=== PATIENT | male | born 1970 | race Caucasian/White ===

== ENCOUNTER 2017-08-14 20:22 | Emergency (ER) | payer MEDICAID ==
[~2017-08-14] VITALS: Ht 190.5 cm; Wt 102.3 kg
[~2017-08-14 20:22] MED LIST: ALBUTEROL1.25 MG/3 IH; ASPIRIN 32325 MG/TAB PO; ATROVENT I0.2 MG/1 M IH; CARDIZEM120 MG PO; CLINDAMYCIN150 MG PO; COMBIRESP IH; CORDARONE200 MG/TAB PO; COUMADIN 5MG5 MG/TAB PO; KLONOPIN 0.5MG0.5 MG PO; KLOR-CON M2020 MEQ PO; LASIX 20MG TABL20 MG PO; LASIX 40MG TABL40 MG PO; LEVAQUIN 750MG750 M1 PO; LIPITOR 10MG10 MG PO; LOPRESSOR 225 MG/TAB PO; NO HOME MEDICATIONS; NORCO 325 MG-51 TAB PO; PREDNISONE20 MG PO; PROAIR HFA0.09 MG/AC IH; TOPROL XL 25MG25 MG PO; TOPROL XL 50MG50 MG PO; ULTRAM 50MG TAB50 MG PO; ZESTRIL 10MG10 MG PO
[2017-08-14 20:24] VITALS: TEMP 97
[2017-08-14 20:50] LABS: BASO # 0.1 (0.0-0.2); EOS # 0.1 (0.0-0.7); EOS % 2.3 % (0-4.0); GRAN # 3.5 (1.4-6.5); HEMATOCRIT 40.2 % (42.0-52.0); HEMOGLOBIN 13.4 g/dl (13.5-18.0); LYMPH # 1.6 (1.2-3.4); LYMPH % 26.8 % (20.0-51.0); MEAN CELL VOLUME 87 fl (80.0-100.0); MEAN CORPUSCULAR HEMOGLOBIN 29 pg (27.0-31.0); MEAN CORPUSCULAR HGB CONC 33 g/dl (33.0-37.0); MEAN PLATELET VOLUME 10.7 fl (7.4-10.4); MONO # 0.7 (0.1-0.6); MONO % 11.1 % (1.7-9.3); PLATELET COUNT 150 K/mm3 (130-400); RED BLOOD COUNT 4.62 M/mm3 (4.20-5.60)
[2017-08-14 20:56] LABS: ALANINE AMINOTRANSFERASE 40 U/L (21-72); ALBUMIN 3.9 gm/dL (3.5-5.0); ALKALINE PHOSPHATASE 81 U/L (50-136); ANION GAP 9 mmol/L (7-16); BILIRUBIN,TOTAL 0.7 mg/dL (0.0-1.0); BLOOD UREA NITROGEN 17 mg/dL (9-20); CALCIUM 8.9 mg/dL (8.4-10.2); CARBON DIOXIDE 27 mmol/L (22-30); CHLORIDE 103 mmol/L (98-107); CREATININE, serum 1.15 mg/dL (0.66-1.25); GLUCOSE 79 mg/dL (74-106); POTASSIUM 4.5 mmol/L (3.4-5.0); PROTHROMBIN TIME 35.4 SECONDS (9.7-12.8); SODIUM 139 mmol/L (137-145); TOTAL PROTEIN 6.8 gm/dL (6.4-8.2)
[2017-08-14 21:08] LABS: B-TYPE NATRIURETIC PEPTIDE 82 pg/mL (0-125)
[2017-08-14 21:09] LABS: TROPONIN-I < 0.012 ng/mL (0.000-0.034)
[2017-08-14] MEDS ORDERED: LOPRESSOR 550 MG/TAB PO (21:20)
[2017-08-14] MEDS ORDERED: COUMADIN4 MG PO (21:20)
[2017-08-14] MEDS ORDERED: CORDARONE200 MG/TAB PO (21:21)
[2017-08-14] MEDS ORDERED: ZOLOFT 50MG50 MG PO (21:21)
[2017-08-14] MEDS ORDERED: VASOTEC 2.2.5 MG/TAB PO (21:21)
[2017-08-14] MEDS ORDERED: FLOMAX 0.40.4 MG/CAP PO (21:22)
[2017-08-14] MEDS ORDERED: BUSPAR10 MG PO (21:22)
[2017-08-14] MEDS ORDERED: PROAIR HFA0.09 MG/AC IH (21:23)
[2017-08-14] MEDS ORDERED: ZITHROMAX 250M250 MG PO (22:16)
[2017-08-14] MEDS ORDERED: NAPROXEN 3375 MG/TAB PO (22:16)
[2017-08-14 23:20] VITALS: BP 126/89; PULSE 54
== END 2017-08-14 23:24 | disposition home or self-care (01) ==
LOC: COL.ER 20:22
PROVIDERS: Emergency Medicine
DX: J20.9 Acute bronchitis, unspecified (principal); J44.0 Chronic obstructive pulmonary disease with (acute) lower respiratory infection; R07.89 Other chest pain; I50.9 Heart failure, unspecified; I48.91 Unspecified atrial fibrillation; Z79.01 Long term (current) use of anticoagulants; I42.9 Cardiomyopathy, unspecified; Z87.891 Personal history of nicotine dependence
CPT/HCPCS: J1100; J1170; J1885; J2405; J7030

== ENCOUNTER 2018-12-13 15:39 | Inpatient (IN) | payer SELFPAY ==
[~2018-12-13] VITALS: Ht 188 cm; Wt 91.3 kg
[~2018-12-13 15:39] MED LIST changes: +ALDACTONE 25MG25 M1 PO; +BUSPAR10 MG PO; +COREG 6.256.25 MG/TA PO; +COUMADIN4 MG PO; +FLOMAX 0.40.4 MG/CAP PO; +LOPRESSOR 550 MG/TAB PO; +NAPROXEN 3375 MG/TAB PO; +PACERONE400 MG PO; +PRINIVIL10 MG PO; +VASOTEC 2.2.5 MG/TAB PO; +XARELTO20 MG PO; +ZITHROMAX 250M250 MG PO; +ZOLOFT 50MG50 MG PO
[2019-01-07 10:11] LABS: BASO # 0.1 (0.0-0.2); BASO % 0.8 % (0.0-2.0); EOS % 0.3 % (0-4.0); GRAN # 6.2 (1.4-6.5); HEMATOCRIT 42.6 % (42.0-52.0); HEMOGLOBIN 13.7 g/dl (13.5-18.0); LYMPH # 1.5 (1.2-3.4); LYMPH % 17.5 % (20.0-51.0); MEAN CELL VOLUME 82 fl (80.0-100.0); MEAN CORPUSCULAR HEMOGLOBIN 26 pg (27.0-31.0); MEAN CORPUSCULAR HGB CONC 32 g/dl (33.0-37.0); MEAN PLATELET VOLUME 10.4 fl (7.4-10.4); MONO # 0.9 (0.1-0.6); MONO % 9.9 % (1.7-9.3); PLATELET COUNT 245 K/mm3 (130-400); RED BLOOD COUNT 5.18 M/mm3 (4.20-5.60); REDCELL DISTRIBUTION WIDTH-CV 14.6 % (11.5-14.5)
[2019-01-07 10:13] LABS: INR 1.6 (0.8-3.0); PROTHROMBIN TIME 17.8 SECONDS (9.7-12.8)
[2019-01-07 10:30] VITALS: BP 91/60; PULSE 113; TEMP 97.3
[2019-01-07 10:35] LABS: ALBUMIN 3.7 gm/dL (3.5-5.0); BILIRUBIN,TOTAL 1.3 mg/dL (0.0-1.0); CALCIUM 8.7 mg/dL (8.4-10.2); CREATININE, serum 1.3 mg/dL (0.66-1.25); MAGNESIUM 2.2 mg/dL (1.6-2.3); POTASSIUM 4.2 mmol/L (3.4-5.0); TOTAL PROTEIN 6.3 gm/dL (6.4-8.2)
[2019-01-07] MEDS ORDERED: COUMADIN 22.5 MG/TAB PO (10:43)
[2019-01-07 12:35] VITALS: BP 97/72; PULSE 96; TEMP 97
--- NOTE | 2019-01-07 13:28 | NUR ---
Patient admitted to Room 315 this AM for intiation of Sotalol. Patient is understanding that he has A-Fib and has been taking Coumadin on a regular basis. Patient is alert and oriented x 3. Skin w/d. Patient has c/o pain in lower back but states this is chronic for him. He verbalizes that he usually takes Tylenol and changes position for this c/o pain. Lungs essentially clear with resp even/unlabore. HR is strong and irregular. Abdomen is soft with bowel sounds x 4 quads. Appetite is good. Patient given instruction on ordering from menu with ADA diet. Patient verbalizes understanding. PPP. No pedal edema noted. 20 G INT started to right forearm on first attempt. Tele placed on patient. Patient given instruction of call light; meal ordering and plan of care. No other needs at this time. CHF notebook given to patient
[2019-01-07 17:09] VITALS: BP 89/66; PULSE 85; TEMP 97.6
--- NOTE | 2019-01-07 17:37 | NUR ---
Patient continues to be in A-Fib with a rate 80-110. Tele remains on at this time. Tylenol 650 mg given for c/o hip/lower back pain. He reports this is a chronic problem
--- NOTE | 2019-01-07 18:38 | NUR ---
Patient has rested throughout the day. States that since the air has been fixed in room she feels so much better. Patient has recieved pain medication throughout the day per request. Stump has remained unchanged. BISMARK drain has approx 15 cc of red colored fluid.
--- NOTE | 2019-01-07 20:29 | NUR ---
PT SLEEPING A+OX4. NO PAIN. NO SOA. IRREGUALR HEART rhythm. no needs at this time. call light in reach. shift assessment complete/
[2019-01-07 21:10] VITALS: BP 108/84; PULSE 91; TEMP 97.3
[2019-01-08 00:28] VITALS: BP 108/78; PULSE 89; TEMP 97.4
--- NOTE | 2019-01-08 01:57 | NUR ---
pt sleping throughout night. reports no pain. no needs at this time. call light inreach
[2019-01-08 04:00] VITALS: BP 119/71; PULSE 81; TEMP 97.4
--- NOTE | 2019-01-08 05:39 | NUR ---
pt slept throughout night. reports no pain. no soa. pt in AFIB. pulse in 90-110s. pt independent. no needs at this time. call light in reach
--- NOTE | 2019-01-08 06:47 | NUR ---
report given to VIKAS Omer
[2019-01-08 07:35] LABS: BASO # 0.1 (0.0-0.2); BASO % 1.2 % (0.0-2.0); EOS # 0.2 (0.0-0.7); GRAN # 2.6 (1.4-6.5); HEMATOCRIT 44.6 % (42.0-52.0); HEMOGLOBIN 14.6 g/dl (13.5-18.0); INR 1.3 (0.8-3.0); LYMPH # 1.6 (1.2-3.4); LYMPH % 31.4 % (20.0-51.0); MEAN CELL VOLUME 83 fl (80.0-100.0); MEAN CORPUSCULAR HEMOGLOBIN 27 pg (27.0-31.0); MEAN CORPUSCULAR HGB CONC 33 g/dl (33.0-37.0); MEAN PLATELET VOLUME 10.3 fl (7.4-10.4); MONO # 0.6 (0.1-0.6); PLATELET COUNT 195 K/mm3 (130-400); PROTHROMBIN TIME 14.7 SECONDS (9.7-12.8); RED BLOOD COUNT 5.39 M/mm3 (4.20-5.60); REDCELL DISTRIBUTION WIDTH-CV 14.6 % (11.5-14.5)
[2019-01-08 07:47] LABS: CALCIUM 8.6 mg/dL (8.4-10.2); CREATININE, serum 1.14 mg/dL (0.66-1.25); MAGNESIUM 2.1 mg/dL (1.6-2.3); POTASSIUM 4.1 mmol/L (3.4-5.0)
[2019-01-08 07:57] VITALS: BP 112/82; PULSE 106; TEMP 97.6
--- NOTE | 2019-01-08 08:14 | NUR ---
Assessment complete. Pt is AXO x3, states he has pain in his hips rated at a 5/10. Breathing is even and unlabored on room air. Tele on. RW INT flushes easily, remains free of complications, and is CDI. Pt is sitting up in the bed watching TV at this time and he denies further needs. Call light within reach, will continue to monitor.
[2019-01-08 12:12] VITALS: BP 114/89; PULSE 71; TEMP 97.5
[2019-01-08 16:47] VITALS: BP 116/84; PULSE 105; TEMP 97.8
--- NOTE | 2019-01-08 17:00 | NUR ---
STEPHANE met with patient about discharge plans. Patient lives at home with his sister. Patient's PCP is Dr Jose. Patient reports difficulty obtains medications because he does not have insurance. Jay with financial met with patient about financial assistance. STEPHANE will contact Jay to see if patient qualifies for medicaid. Patient reports he does not use any DME or home health services. Patient also reports he does not have a DPOA but would like to complete one. STEPHANE provided form. Patient will read over form with his sister this evening. STEPHANE will follow up about DPOA in the morning. STEPHANE will continue to follow and assist with any discharge needs.
--- NOTE | 2019-01-08 18:13 | NUR ---
Pt has been resting on and off throughout the day. He has had intermittent pain in his hips. Pain medication administered on DEC. Pt's sister is at the bedside and DPOA paperwork was signed and witnesses by VIKAS Slater, and this nurse. Pt is sitting up in the bed watching TV at this time and he denies further needs. Call light within reach.
--- NOTE | 2019-01-08 19:14 | NUR ---
Report given to VIKAS Duff.
[2019-01-08 21:07] VITALS: BP 96/57; PULSE 60; TEMP 97.9
--- NOTE | 2019-01-08 21:18 | NUR ---
PT RESTING IN BED A+OX4.reports paqin in hips 03/08 denies needs for intervention. shift assessment compete. c/o SOA. no needs at this time. call light in reach
[2019-01-09 00:11] VITALS: BP 113/82; PULSE 81; TEMP 98.2
--- NOTE | 2019-01-09 01:57 | NUR ---
pt has been sleeping. no complaints. no needs/ call light in reach
[2019-01-09 04:50] VITALS: BP 126/92; PULSE 77; TEMP 97.9
--- NOTE | 2019-01-09 04:50 | NUR ---
pt had an uneventful night. reports some pain in hips, denied needs for interventions. no needs at this time. call light in reach. Pt in AFIB. NPO for possible cardioversion today.
[2019-01-09 06:58] LABS: BASO % 0.6 % (0.0-2.0); EOS # 0.1 (0.0-0.7); EOS % 2.1 % (0-4.0); GRAN # 4.1 (1.4-6.5); HEMATOCRIT 45.6 % (42.0-52.0); HEMOGLOBIN 14.9 g/dl (13.5-18.0); LYMPH # 1.9 (1.2-3.4); LYMPH % 27.6 % (20.0-51.0); MEAN CELL VOLUME 82 fl (80.0-100.0); MEAN CORPUSCULAR HEMOGLOBIN 27 pg (27.0-31.0); MEAN CORPUSCULAR HGB CONC 33 g/dl (33.0-37.0); MEAN PLATELET VOLUME 10.9 fl (7.4-10.4); MONO # 0.6 (0.1-0.6); MONO % 8.3 % (1.7-9.3); PLATELET COUNT 232 K/mm3 (130-400); RED BLOOD COUNT 5.56 M/mm3 (4.20-5.60); REDCELL DISTRIBUTION WIDTH-CV 14.6 % (11.5-14.5)
[2019-01-09 07:03] LABS: INR 1.7 (0.8-3.0)
--- NOTE | 2019-01-09 07:08 | NUR ---
REPORT GIVEN TO Aly RN. NO NEEDS AT THIS TIME. PT SLEEPING
[2019-01-09 07:11] LABS: CALCIUM 8.7 mg/dL (8.4-10.2); CREATININE, serum 1.13 mg/dL (0.66-1.25); MAGNESIUM 1.9 mg/dL (1.6-2.3); POTASSIUM 4.2 mmol/L (3.4-5.0)
--- NOTE | 2019-01-09 09:00 | NUR ---
Pt lying in bed. Pt tried ordering breafast reminded him he is NPO. Completed morning assessment. pt denies any pain. Call light in reach.
[2019-01-09 09:23] VITALS: BP 120/91; PULSE 51; TEMP 97.8
--- NOTE | 2019-01-09 09:28 | NUR ---
STEPHANE spoke with Jay from [facility] about patient applying for medicaid. Jay reports patient's sister is helping him apply.
--- NOTE | 2019-01-09 09:46 | NUR ---
Pt lying in bed, gave pt his soldalol QTc 509, given per Pamela BEAN from office
[2019-01-09 13:43] VITALS: BP 104/73; PULSE 114; TEMP 97.4
[2019-01-09] MEDS ORDERED: BETAPACE 80MG80 MG PO (15:10)
--- NOTE | 2019-01-09 15:31 | NUR ---
Pt became very upset about not being discharged in a timely manner. Pt removed his own INT. Discharge paper work given, pt verbalized understanding, denies any questions. Pt walked himself out.
== END 2019-01-09 15:20 | disposition home or self-care (01) | DRG 309 ==
LOC: MEDICAL 12-19 15:39
PROVIDERS: Nurse Practitioner; ADMIT Internal Medicine Cardiovascular Disease
DX: I48.0 Paroxysmal atrial fibrillation (principal); I50.22 Chronic systolic (congestive) heart failure; I42.0 Dilated cardiomyopathy; I11.0 Hypertensive heart disease with heart failure; I34.0 Nonrheumatic mitral (valve) insufficiency; Z91.14 Patient's other noncompliance with medication regimen; J44.9 Chronic obstructive pulmonary disease, unspecified; Z79.01 Long term (current) use of anticoagulants; F17.210 Nicotine dependence, cigarettes, uncomplicated

== ENCOUNTER 2019-01-18 08:07 | Inpatient (IN) | payer OTHER ==
[~2019-01-18] VITALS: Ht 188 cm; Wt 97.3 kg
[~2019-01-18 08:07] MED LIST changes: +BETAPACE 80MG80 MG PO; +COUMADIN 22.5 MG/TAB PO
[2019-01-18] MEDS ORDERED: COREG12.5 MG PO (08:36)
[2019-01-18] MEDS ORDERED: PRINIVIL10 MG PO (08:38)
[2019-01-18] MEDS ORDERED: ALDACTONE 25MG25 M1 PO (08:39)
[2019-01-18] MEDS ORDERED: COUMADIN 77.5 MG/TAB PO (08:49)
[2019-01-18 08:50] LABS: HEMATOCRIT 40.5 % (42.0-52.0); HEMOGLOBIN 13.1 g/dl (13.5-18.0); MEAN CELL VOLUME 83 fl (80.0-100.0); MEAN CORPUSCULAR HEMOGLOBIN 27 pg (27.0-31.0); MEAN CORPUSCULAR HGB CONC 32 g/dl (33.0-37.0); MEAN PLATELET VOLUME 10.6 fl (7.4-10.4); PLATELET COUNT 160 K/mm3 (130-400); RED BLOOD COUNT 4.88 M/mm3 (4.20-5.60); REDCELL DISTRIBUTION WIDTH-CV 15.1 % (11.5-14.5)
[2019-01-18 08:51] VITALS: BP 118/99; PULSE 108; TEMP 97.8
[2019-01-18] MEDS ORDERED: COUMADIN 5MG5 MG/TAB PO (08:51)
[2019-01-18 09:05] LABS: CALCIUM 8.6 mg/dL (8.4-10.2); CREATININE, serum 1.17 mg/dL (0.66-1.25); POTASSIUM 3.8 mmol/L (3.4-5.0)
[2019-01-18 09:23] LABS: INR 5.8 (0.8-3.0); PROTHROMBIN TIME 66.2 SECONDS (9.7-12.8)
[2019-01-18 12:40] VITALS: BP 141/89; PULSE 114
--- NOTE | 2019-01-18 12:45 | NUR ---
SEE MEREREBECCA FOR INTRA AND POST SEDATION DOCUMENTATION AND SCORING
--- NOTE | 2019-01-18 14:42 | NUR ---
Pamela RN with Dr Cristina notified me of an CPFT ordered, Talked with nurse taking care of patient and patient still to drowsy to be able to perform CPFT. Will reevaluate on monday, Pamela RN with Dr Cristina Notified.
[2019-01-18 14:50] VITALS: BP 141/89; PULSE 114; TEMP 97.8
--- NOTE | 2019-01-18 16:38 | NUR ---
Report given to Kan BEAN. Transferred to Room 306 by lionel
--- NOTE | 2019-01-18 17:00 | NUR ---
Pt arrived to room 306 via WC.
[2019-01-18 17:58] VITALS: BP 111/79; PULSE 69; TEMP 97.7
[2019-01-18 20:21] VITALS: BP 104/71; PULSE 55; TEMP 97.3
--- NOTE | 2019-01-18 20:30 | NUR ---
Initial shift assessment done- denies pain/SOB , Up ad alanna in room,, Tele on- afib- rate 100,, Did have the 4 hour post amiodarone dose EKG at this time- QTC 463. No requests- states wants to sleep
--- NOTE | 2019-01-18 20:34 | NUR ---
Since arriving to the floor the pt has been resting on and off. he is sitting up in the bed and he denies further needs. Call light within reach. Report given to VIKAS Owens.
[2019-01-18 23:29] VITALS: BP 110/83; PULSE 93; TEMP 97.8
[2019-01-19] VITALS (7 sets, daily range): BP systolic 94–125; BP diastolic 65–89; PULSE 81–110; TEMP 97.4–97.9
--- NOTE | 2019-01-19 06:33 | NUR ---
Quiet night- no requests,,Tele-afib,rate 100-105
[2019-01-19 07:12] LABS: CALCIUM 8.3 mg/dL (8.4-10.2); CREATININE, serum 1.06 mg/dL (0.66-1.25); MAGNESIUM 1.9 mg/dL (1.6-2.3); POTASSIUM 4.2 mmol/L (3.4-5.0)
--- NOTE | 2019-01-19 08:50 | NUR ---
Assessment complete. Pt is AXO X3, states he has pain in his hips rated at a 5/10. Breathing is even and unlabored on room air. Tele on. RA INT flushes easily, remains free of complications, and is CDI. Pt is resting quietly in the bed watching TV at this time and he denies further needs. Call light within reach, will continue to monitor.
[2019-01-19 15:05] LABS: INR 5.1 (0.8-3.0); PROTHROMBIN TIME 58.4 SECONDS (9.7-12.8)
--- NOTE | 2019-01-19 18:09 | NUR ---
Pt has been resting on and off throughout the day. He has had intermittent chronic pain in his hips. Pain medication administered on DEC. Pt is resting quietly in the bed at this time and he denies further needs. Call light within reach, will continue to monitor.
--- NOTE | 2019-01-19 19:24 | NUR ---
Report given to VIKAS Owens.
--- NOTE | 2019-01-19 20:30 | NUR ---
Initial shift assessment done- denies pain,no SOB, states feels like his hands are swollen, Tele on- Afib, rate 100 - family in room, visiting , watching TV. Requesting Pepsi/chocolate milk
[2019-01-20 04:15] VITALS: BP 125/89; PULSE 100; TEMP 97.6
--- NOTE | 2019-01-20 05:20 | NUR ---
States did not sleep much last night- states is coughing , will let Dr. Cristina know during rounds today--offered some hot tea/cocoa,appreciated the hot cocoa- no other requests.
--- NOTE | 2019-01-20 06:49 | NUR ---
Received report, entered room to meet patient and he is noted to be lying on right side sleeping. Respirations are noted to be regular and nonlabored. Call light is within reach.
[2019-01-20 07:30] VITALS: BP 113/92; PULSE 90; TEMP 97.8
--- NOTE | 2019-01-20 07:51 | NUR ---
Patient assessed, asked if he was having any pain and stated yes, 2-3/10. Does have PRN tylenol and was offered. He declined stating this was usual for him and he was used to it. Did state he would like a shower today and will let staff know when he is ready. Reports he slept poorly last night and would like to see if he could get more sleep this morning. I did inform him that he does have a PRN Ambien available to help him sleep and he stated he would accept that tonight. No other needs verbalized. Call light is within reach.
[2019-01-20 08:08] LABS: CALCIUM 8.3 mg/dL (8.4-10.2); CREATININE, serum 1.03 mg/dL (0.66-1.25); MAGNESIUM 1.9 mg/dL (1.6-2.3); POTASSIUM 4.1 mmol/L (3.4-5.0)
[2019-01-20 08:10] LABS: INR 3.7 (0.8-3.0); PROTHROMBIN TIME 42.2 SECONDS (9.7-12.8)
[2019-01-20 12:00] VITALS: BP 117/80; PULSE 95; TEMP 97.5
[2019-01-20 15:26] VITALS: BP 109/78; PULSE 104; TEMP 97.3
--- NOTE | 2019-01-20 16:03 | NUR ---
Call placed to Dr. Cristina regarding INR result today, he does wish for patient to receive the current order of coumadin that is listed on the MAR.
--- NOTE | 2019-01-20 17:13 | NUR ---
Patient has had an uneventful day. Walked around floor with family and girlfriend is currently visiting with him at this time. No needs verbalized, denies pain. Call light is within reach.
[2019-01-20 19:01] VITALS: BP 97/76; PULSE 96; TEMP 97.8
--- NOTE | 2019-01-20 22:17 | NUR ---
Sitting at bedside. Assessment complete. Lungs clear. Heart sounds normal. Bowels active x4. Pulses strong throughout. No edema noted. Denies pain at this time. Denies needs. Call light in reach.
[2019-01-20 23:28] VITALS: BP 116/94; PULSE 79; TEMP 97.3
[2019-01-21] VITALS (12 sets, daily range): BP systolic 99–126; BP diastolic 71–100; PULSE 50–101; TEMP 97–97.9
--- NOTE | 2019-01-21 01:00 | NUR ---
Resting in bed asleep.
--- NOTE | 2019-01-21 04:04 | NUR ---
Resting in bed. Denied needs. Call light in reach.
[2019-01-21 06:40] LABS: INR 3.4 (0.8-3.0); PROTHROMBIN TIME 38.5 SECONDS (9.7-12.8)
[2019-01-21 06:54] LABS: CALCIUM 8.4 mg/dL (8.4-10.2); CREATININE, serum 1.02 mg/dL (0.66-1.25); MAGNESIUM 1.8 mg/dL (1.6-2.3); POTASSIUM 4.1 mmol/L (3.4-5.0)
--- NOTE | 2019-01-21 07:00 | NUR ---
Received report, went to see patient for the morning. Patient was resting in bed with girlfriend. Consent for cardioversion signed. Reminded patient of NPO status. No other needs identified. Call light is withn reach.
--- NOTE | 2019-01-21 07:29 | NUR ---
Report given to VIKAS Henry. Resting in bed this AM. Consent signed for cardioversion. Had uneventful night. Denies needs this AM. Call light in reach.
--- NOTE | 2019-01-21 11:15 | NUR ---
Patient to receiver/laborer for cardioversion at this time.
--- NOTE | 2019-01-21 11:36 | NUR ---
Initial visit; Patient thanked Coke Crusher Operator for looking in on him and offering God's blessings.
--- NOTE | 2019-01-21 11:41 | NUR ---
ALL SEDATION MEDICATIONS GIVEN DURING PROCEDURE WITH VERBAL ORDER FROM MD PERDOMO. SEE MERGE REPORT FOR MEDICATION ADMIN TIMES. SEE MERGE FOR RASS AND MODERATE SEDATION ASSESSMENTS DURING AND POST PROCEDURE.
[2019-01-21] MEDS ORDERED: PACERONE400 MG PO (11:57)
[2019-01-21] MEDS ORDERED: COREG 25MG25 MG/TAB PO (11:58)
[2019-01-21] MEDS ORDERED: COUMADIN 5MG5 MG/TAB PO (11:58)
--- NOTE | 2019-01-21 12:38 | NUR ---
Patient returned from procedure. Is sleepy, does arouse to name and will follow commands. Shook head no when asked if he had pain. Nursing is remaining at bedside.
--- NOTE | 2019-01-21 14:30 | NUR ---
ATTEMPTED TO COOKIE PADDER PATIENT FOR CPFT AND PATIENT FELT HE WAS STILL TO TIRED TO BE ABLE TO PERFOM CPFT. AUGUST BEAN WITH DR PERDOMO NOTIFIED GLORIAT WILL DO CPFT AN OUT PATIENT. NURSE NOTIFIED
--- NOTE | 2019-01-21 14:31 | NUR ---
STEPHANE met with patient to discuss discharge planning. Patient lives independently at home. Patient does have a PCP but is interested in seeing someone at the [facility] because they have a program for medication assistance and take patient's that don't have insurance. Patient would also like to meet with a financial counselor about a medicaid application. Patient does not use any home health services or DME. STEPHANE then contacted Jay about patient wanting to fill out a medicaid application. Jay reports he will meet with patient soon. STEPHANE also informed patient's nurse that he would like a follow up appointment at the [facility].
--- NOTE | 2019-01-21 15:59 | NUR ---
Patient has finished with lunch. Is inquiring when he is going to leave. He states he is not waiting 3 hours before he can be discharged or he is going to walk out. Call has been placed to the nurse associate for Dr. Cristina. Awaiting a call back.
--- NOTE | 2019-01-21 16:42 | NUR ---
Patient discharging at this time, dressed and packed bag independently. Discharge instructions given with patient verbalizing understanding. Patient chose to ambulate to his ride.
== END 2019-01-21 16:40 | disposition home or self-care (01) | DRG 309 ==
LOC: COL.CAR 08:07 → MEDICAL 14:17 → COL.CAR 14:17 → MEDICAL 14:17 → COL.CAR 16:39 → MEDICAL 16:39 → COL.CAR 01-20 16:39 → MEDICAL 01-20 16:39
PROVIDERS: ADMIT Internal Medicine Cardiovascular Disease
PROC: 5A2204Z Restoration of Cardiac Rhythm, Single (ICD-10-PCS; principal; 2019-01-18)
PROC: 5A2204Z Restoration of Cardiac Rhythm, Single (ICD-10-PCS; 2019-01-21)
DX: I48.0 Paroxysmal atrial fibrillation (principal); I50.22 Chronic systolic (congestive) heart failure; I11.0 Hypertensive heart disease with heart failure; I42.0 Dilated cardiomyopathy; J44.9 Chronic obstructive pulmonary disease, unspecified; Z91.14 Patient's other noncompliance with medication regimen; Z79.01 Long term (current) use of anticoagulants; I34.0 Nonrheumatic mitral (valve) insufficiency; K21.9 Gastro-esophageal reflux disease without esophagitis; F17.210 Nicotine dependence, cigarettes, uncomplicated
CPT/HCPCS: OP; J2250; J3010; J7030

== ENCOUNTER → 2019-01-24 | Outpatient (CLI) | payer OTHER ==
[~2019-01-24] MED LIST changes: +COREG 25MG25 MG/TAB PO; +COREG12.5 MG PO; +COUMADIN 77.5 MG/TAB PO
== END ==
LOC: COL.PUL 11:05
DX: Z01.89 Encounter for other specified special examinations (principal)

== ENCOUNTER 2019-02-28 07:11 | Day surgery (SDC) | payer OTHER ==
[~2019-02-28] VITALS: Ht 188.1 cm; Wt 91.0 kg
[2019-02-28] MEDS ORDERED: CORDARONE200 MG/TAB PO (07:27)
[2019-02-28] MEDS ORDERED: COUMADIN 5MG5 MG/TAB PO ×3 (07:28→10:21)
[2019-02-28 07:50] LABS: HEMATOCRIT 44.8 % (42.0-52.0); HEMOGLOBIN 14.8 g/dl (13.5-18.0); MEAN CELL VOLUME 79 fl (80.0-100.0); MEAN CORPUSCULAR HEMOGLOBIN 26 pg (27.0-31.0); MEAN CORPUSCULAR HGB CONC 33 g/dl (33.0-37.0); PLATELET COUNT 213 K/mm3 (130-400); RED BLOOD COUNT 5.66 M/mm3 (4.20-5.60); REDCELL DISTRIBUTION WIDTH-CV 16.7 % (11.5-14.5)
[2019-02-28 08:00] LABS: INR 5.4 (0.8-3.0)
[2019-02-28 08:05] LABS: CALCIUM 8.9 mg/dL (8.4-10.2); CREATININE, serum 1.25 (0.66-1.25); POTASSIUM 4.1 mmol/L (3.4-5.0)
[2019-02-28 08:10] VITALS: BP 114/87; PULSE 83; TEMP 98
[2019-02-28 09:45] VITALS: BP 111/84; PULSE 58
--- NOTE | 2019-02-28 09:45 | NUR ---
FAVIOLA/CV complete, pt lm well per report from Ney BEAN in crime lab technician. Pt resting well in bed.
[2019-02-28 10:00] VITALS: BP 114/86; PULSE 55
[2019-02-28 10:15] VITALS: BP 122/89; PULSE 59; TEMP 97.6
[2019-02-28] MEDS ORDERED: PACERONE400 MG PO (10:22)
[2019-02-28 10:30] VITALS: BP 107/77; PULSE 68
[2019-02-28 10:45] VITALS: BP 111/73; PULSE 97
--- NOTE | 2019-02-28 10:50 | NUR ---
Pt has ambulated and lm PO intake s n/v. PIV removed with catheter intact.
--- NOTE | 2019-02-28 11:10 | NUR ---
Pt discharged per w/c by nurse with friend.
== END 2019-02-28 11:42 | disposition home or self-care (01) ==
LOC: COL.CAR 07:11
PROVIDERS: Internal Medicine Cardiovascular Disease
DX: I48.0 Paroxysmal atrial fibrillation (principal); I42.8 Other cardiomyopathies; J44.9 Chronic obstructive pulmonary disease, unspecified; I34.0 Nonrheumatic mitral (valve) insufficiency; F41.9 Anxiety disorder, unspecified; I11.0 Hypertensive heart disease with heart failure; I50.22 Chronic systolic (congestive) heart failure; K21.9 Gastro-esophageal reflux disease without esophagitis; F17.210 Nicotine dependence, cigarettes, uncomplicated; G47.33 Obstructive sleep apnea (adult) (pediatric); Z79.01 Long term (current) use of anticoagulants; Z80.9 Family history of malignant neoplasm, unspecified; Z82.49 Family history of ischemic heart disease and other diseases of the circulatory system; M87.9 Osteonecrosis, unspecified
CPT/HCPCS: J2250; J2704; J3010; J7120

== ENCOUNTER → 2019-05-06 | Outpatient (CLI) | payer OTHER | LOC: COL.RAD 06:46 | DX: Z02.71 Encounter for disability determination (principal); M16.11 Unilateral primary osteoarthritis, right hip ==

== ENCOUNTER 2019-05-17 07:35 | Emergency (ER) | payer OTHER ==
[~2019-05-17] VITALS: Ht 182.9 cm; Wt 90.9 kg
[2019-05-17 07:41] VITALS: TEMP 97.3
[2019-05-17 09:10] VITALS: BP 138/98; PULSE 96
== END 2019-05-17 09:15 | disposition home or self-care (01) ==
LOC: COL.ER 07:35
DX: S51.812A Laceration without foreign body of left forearm, initial encounter (principal); I48.91 Unspecified atrial fibrillation; I25.10 Atherosclerotic heart disease of native coronary artery without angina pectoris; Z79.01 Long term (current) use of anticoagulants; W45.0XXA Nail entering through skin, initial encounter; Y92.009 Unspecified place in unspecified non-institutional (private) residence as the place of occurrence of the external cause

== ENCOUNTER 2019-05-24 06:44 | Inpatient (IN) | payer OTHER ==
[~2019-05-24] VITALS: Ht 182.9 cm; Wt 87.4 kg
[2019-05-24 07:09] LABS: BASO # 0.1 (0.0-0.2); BASO % 0.7 % (0.0-2.0); EOS # 0.1 (0.0-0.7); EOS % 1.4 % (0-4.0); GRAN % 69.7 % (42.2-75.2); HEMATOCRIT 39.4 % (42.0-52.0); HEMOGLOBIN 12.5 g/dl (13.5-18.0); LYMPH # 1.4 (1.2-3.4); LYMPH % 19.3 % (20.0-51.0); MEAN CELL VOLUME 80 fl (80.0-100.0); MEAN CORPUSCULAR HEMOGLOBIN 25 pg (27.0-31.0); MEAN CORPUSCULAR HGB CONC 32 g/dl (33.0-37.0); MONO # 0.6 (0.1-0.6); MONO % 8.1 % (1.7-9.3); PLATELET COUNT 193 K/mm3 (130-400); RED BLOOD COUNT 4.92 M/mm3 (4.20-5.60); REDCELL DISTRIBUTION WIDTH-CV 17.2 % (11.5-14.5)
[2019-05-24 07:20] LABS: ALBUMIN 3.7 gm/dL (3.5-5.0); BILIRUBIN,TOTAL 0.8 mg/dL (0.0-1.0); CALCIUM 8.9 mg/dL (8.4-10.2); CREATININE, serum 1.11 (0.66-1.25); MAGNESIUM 1.9 mg/dL (1.6-2.3); POTASSIUM 4.5 mmol/L (3.4-5.0); TOTAL PROTEIN 6.6 gm/dL (6.4-8.2)
[2019-05-24 07:29] LABS: TROPONIN-I 0.015 ng/mL (0.000-0.035)
[2019-05-24 07:56] LABS: INR 1.3 (0.8-3.0); PROTHROMBIN TIME 14.7 SECONDS (9.7-12.8)
[2019-05-24 09:43] VITALS: BP 120/102; PULSE 105; TEMP 97.9
--- NOTE | 2019-05-24 11:37 | NUR ---
Initial visit; Patient thanked High Pressure Kettle Operator for looking in on him and offering God's blessings and to keep him in her prayers.
--- NOTE | 2019-05-24 12:30 | NUR ---
Patient admitted from the ER. rounded. Order obtained. Medications given. Tele on. Family at bedside. He has tolerated diet. Patient admits to non compliance with medications & reports not being sure of what meds he is all to be taking. Reviewed with him heart healthy diet & strict I&O
[2019-05-24 12:47] VITALS: BP 121/95; PULSE 79; TEMP 98.5
--- NOTE | 2019-05-24 15:15 | NUR ---
notifed for consult. Updated on patient status. Order obtained. Iv lopressor per orders.
[2019-05-24 17:17] VITALS: BP 131/112; PULSE 106; TEMP 97.9
--- NOTE | 2019-05-24 17:25 | NUR ---
Patient ordered dinner. Lasix has taken effect, accurate I&O recorded.
--- NOTE | 2019-05-24 19:26 | NUR ---
Bedside report to Rema Rn, Patient denies needs at this time, he is hope to DC in am
[2019-05-24 20:24] VITALS: BP 126/96; PULSE 64; TEMP 98.4
--- NOTE | 2019-05-24 21:00 | NUR ---
Patient up in room, alert and oriented x4. Has SL to right upper arm without redness or swelling. Reports being hungry, turkey sandwich provided. Takes po Coumadin and IV Lopressor given. Voiding per urinal in bathroom, yellow urine. Reports improved shortness of breath.
[2019-05-25] VITALS (7 sets, daily range): BP systolic 107–134; BP diastolic 84–98; PULSE 46–114; TEMP 97.5–98.2
--- NOTE | 2019-05-25 03:01 | NUR ---
Patient awake, IV Lopressor given. Patient denies pain, no concerns offered at this time.
[2019-05-25 08:18] LABS: BASO # 0.1 (0.0-0.2); BASO % 0.9 % (0.0-2.0); EOS # 0.2 (0.0-0.7); EOS % 2.2 % (0-4.0); GRAN # 5.4 (1.4-6.5); GRAN % 66.3 % (42.2-75.2); HEMATOCRIT 40.6 % (42.0-52.0); LYMPH # 1.7 (1.2-3.4); LYMPH % 20.4 % (20.0-51.0); MEAN CELL VOLUME 79 fl (80.0-100.0); MEAN CORPUSCULAR HEMOGLOBIN 25 pg (27.0-31.0); MEAN CORPUSCULAR HGB CONC 32 g/dl (33.0-37.0); MEAN PLATELET VOLUME 10.7 fl (7.4-10.4); MONO # 0.8 (0.1-0.6); MONO % 9.6 % (1.7-9.3); PLATELET COUNT 212 K/mm3 (130-400); RED BLOOD COUNT 5.15 M/mm3 (4.20-5.60); REDCELL DISTRIBUTION WIDTH-CV 17.1 % (11.5-14.5)
[2019-05-25 08:22] LABS: INR 1.3 (0.8-3.0); PROTHROMBIN TIME 15.1 SECONDS (9.7-12.8)
[2019-05-25 08:34] LABS: ALBUMIN 3.4 gm/dL (3.5-5.0); BILIRUBIN,TOTAL 0.8 mg/dL (0.0-1.0); CREATININE, serum 1.14 (0.66-1.25); POTASSIUM 4.2 mmol/L (3.4-5.0); TOTAL PROTEIN 6.4 gm/dL (6.4-8.2)
--- NOTE | 2019-05-25 18:23 | NUR ---
Patient has rested inermittently during the shift. Patient is alert and oriented, answers questions appropriately. Lungs sound slightly diminished bilaterally in the lower lobes, no cough observed. Patient denies pain. Telemetry remains in place, heart rate is variable but has been tachycardic even when at rest. Patient denies needs, call light within reach.
--- NOTE | 2019-05-25 19:30 | NUR ---
Patient wanting to shower, IV site to right upper arm covered for shower.
--- NOTE | 2019-05-25 21:00 | NUR ---
Patient resting in bed, IV Lopressor given as well as Coumadin 7.5mg po. Pt reports feeling better after shower.
--- NOTE | 2019-05-26 03:00 | NUR ---
Patient resting well, IV Lopressor given at this time. HR remains tachy in the 110-120's.
[2019-05-26 04:25] VITALS: BP 131/95; PULSE 117; PULSE 53; TEMP 97.5
[2019-05-26 06:00] LABS: BASO % 0.3 % (0.0-2.0); EOS % 0.1 % (0-4.0); GRAN # 9.9 (1.4-6.5); GRAN % 85.6 % (42.2-75.2); HEMATOCRIT 41.9 % (42.0-52.0); HEMOGLOBIN 13.5 g/dl (13.5-18.0); LYMPH # 1.1 (1.2-3.4); LYMPH % 9.4 % (20.0-51.0); MEAN CELL VOLUME 78 fl (80.0-100.0); MEAN CORPUSCULAR HEMOGLOBIN 25 pg (27.0-31.0); MEAN CORPUSCULAR HGB CONC 32 g/dl (33.0-37.0); MEAN PLATELET VOLUME 10.8 fl (7.4-10.4); MONO # 0.5 (0.1-0.6); MONO % 3.9 % (1.7-9.3); PLATELET COUNT 239 K/mm3 (130-400); RED BLOOD COUNT 5.37 M/mm3 (4.20-5.60); REDCELL DISTRIBUTION WIDTH-CV 16.8 % (11.5-14.5)
[2019-05-26 06:08] LABS: INR 1.2 (0.8-3.0); PROTHROMBIN TIME 14.3 SECONDS (9.7-12.8)
[2019-05-26 06:21] LABS: CREATININE, serum 0.98 (0.66-1.25); MAGNESIUM 1.9 mg/dL (1.6-2.3); POTASSIUM 4.4 mmol/L (3.4-5.0)
[2019-05-26 08:34] VITALS: BP 121/94; PULSE 109; TEMP 97.6
[2019-05-26] MEDS ORDERED: COREG 25MG25 MG/TAB PO (08:53)
[2019-05-26] MEDS ORDERED: ALDACTONE 25MG25 M1 PO (08:53)
--- NOTE | 2019-05-26 10:00 | NUR ---
Patient resting bed at this time. Patient is alert and oriented, answers questions appropriately. Telemetry in place per order, patient remains in AFIB and is intermittently tachycardic. Patient denies pain, does request a breathing treatment, called RT and they stated he would be first on their floor rounds. Patient is not in respiratory distress and is able to safely wait at this time. Patient denies needs at this time, call light within reach.
[2019-05-26 11:45] VITALS: BP 121/83; PULSE 98; TEMP 98.2
[2019-05-26] MEDS ORDERED: PREDNISONE20 MG PO (13:35)
[2019-05-26] MEDS ORDERED: OMNICEF 300MG300 MG PO (13:35)
--- NOTE | 2019-05-26 14:04 | NUR ---
STEPHANE met with the patient to discuss a discharge plan. The pt lives in [place] with his sister, Caity. The pt ocassionally uses a walker and reports independence with ADLs. The pt's PCP is Dr. Almaraz and pt states he has not seen Dr. Almaraz in approximately 3-4 months. The pt receives his medications from [facility] and may need a medication voucher upon discharge. The pt had advanced directives in the EMR and designate Caity Sanz, pt's sister. The pt plans to return home upon discharge. There are no additional needs at this time.
--- NOTE | 2019-05-26 15:00 | NUR ---
The patient is to discharge home today, 05/26. SW provided a medication voucher for the pt. asbestos pipe supervisor was informed. There are no additional needs at this time.
--- NOTE | 2019-05-26 15:30 | NUR ---
Discharge teaching completed. Patient educated on importance of making follow up appointments and taking medications as ordered after discharge. Patient given phone numbers and instructions for making follow up appointments and a voucher for discharge prescriptions. Patient educated on voucher use by social secretary and nursing. [facility] per voucher and social secretary instructions. INT discontinued, hemostasis achieved. Patient denies questions at this time, will call when ready to walk out.
--- NOTE | 2019-05-26 16:20 | NUR ---
Patient escorted to ED entrance by surgical staff. Patient confirms he has collected his personal belongings. Discharge instructions reiterated to patient, patient verbalizes understanding.
== END 2019-05-26 16:20 | disposition home or self-care (01) | DRG 871 ==
LOC: COL.ER 06:44 → SURG 08:26 → COL.ER 08:26 → SURG 05-26 03:00
PROVIDERS: Emergency Medicine; Physician Assistant; ADMIT Student in an Organized Health Care Education/Training Program
DX: A41.9 Sepsis, unspecified organism (principal); J18.1 Lobar pneumonia, unspecified organism; I50.33 Acute on chronic diastolic (congestive) heart failure; J44.0 Chronic obstructive pulmonary disease with (acute) lower respiratory infection; J44.1 Chronic obstructive pulmonary disease with (acute) exacerbation; I48.91 Unspecified atrial fibrillation; I11.0 Hypertensive heart disease with heart failure; F17.210 Nicotine dependence, cigarettes, uncomplicated
CPT/HCPCS: 99223-AI; 99232-AI; 99239; A4216; A9284; J0696; J1650; J1940; J7030; J7512

== ENCOUNTER 2019-05-28 08:53 | Emergency (ER) | payer OTHER ==
[~2019-05-28 08:53] MED LIST changes: +OMNICEF 300MG300 MG PO
[2019-05-28 08:57] VITALS: BP 132/94; PULSE 88; TEMP 97.5
== END 2019-05-28 09:13 | disposition home or self-care (01) ==
LOC: COL.ER 08:53
DX: Z48.02 Encounter for removal of sutures (principal)

== ENCOUNTER 2019-06-10 06:04 | Observation (INO) | payer OTHER ==
[~2019-06-10] VITALS: Ht 183 cm; Wt 99.2 kg
[2019-06-10 06:39] LABS: INR 2.6 (0.8-3.0); PROTHROMBIN TIME 31.8 SECONDS (9.7-12.8)
[2019-06-10 06:41] LABS: PARTIAL THROMBOPLASTIN TIME 32.1 SECONDS (26.0-37.0)
[2019-06-10 06:45] LABS: ALBUMIN 3.7 gm/dL (3.5-5.0); CALCIUM 8.6 mg/dL (8.4-10.2); CREATININE, serum 1.31 (0.66-1.25); MAGNESIUM 2.1 mg/dL (1.6-2.3); POTASSIUM 3.9 mmol/L (3.4-5.0); TOTAL PROTEIN 6.5 gm/dL (6.4-8.2)
[2019-06-10 06:46] LABS: BASO # 0.1 (0.0-0.2); BASO % 0.6 % (0.0-2.0); EOS # 0.2 (0.0-0.7); EOS % 1.9 % (0-4.0); GRAN # 5.3 (1.4-6.5); GRAN % 65.4 % (42.2-75.2); HEMATOCRIT 39.8 % (42.0-52.0); HEMOGLOBIN 12.6 g/dl (13.5-18.0); LYMPH % 24.4 % (20.0-51.0); MEAN CELL VOLUME 80 fl (80.0-100.0); MEAN CORPUSCULAR HEMOGLOBIN 25 pg (27.0-31.0); MEAN CORPUSCULAR HGB CONC 32 g/dl (33.0-37.0); MEAN PLATELET VOLUME 10.3 fl (7.4-10.4); MONO # 0.6 (0.1-0.6); MONO % 7.2 % (1.7-9.3); PLATELET COUNT 225 K/mm3 (130-400); REDCELL DISTRIBUTION WIDTH-CV 17.3 % (11.5-14.5)
[2019-06-10 06:57] LABS: TROPONIN-I 0.024 ng/mL (0.000-0.035)
[2019-06-10 09:42] VITALS: BP 122/92; PULSE 50; TEMP 97.8
[2019-06-10] MEDS ORDERED: COUMADIN 5MG5 MG/TAB PO (10:31)
--- NOTE | 2019-06-10 11:03 | NUR ---
Pt admission, med rec and allergies completed and charted. Pt resting in bed. Denies chest pain, dizzines, N/V. C/O SOB, currently on 2L NC. Pt kept nodding off/snoring throughout admission. Awoke easily by voice. Hospitalist aware of patients arrival. Pt denies other needs at this time.
[2019-06-10 12:26] VITALS: BP 109/84; PULSE 92; TEMP 97.7
--- NOTE | 2019-06-10 13:49 | NUR ---
Warfarin Initial Dosing Pharmacy Note Ordering Provider: Janice Cazares MD Indication: Atrial Fibrillation LABS: INR 2.6 Recommendation: Continue home Warfarin dosing of Warfarin 7.5 mg po MoTh and Warfarin 5 mg SuTuWeFrSa. Pharmacy will continue to monitor and follow daily INR levels. Home Regimen: Warfarin 7.5 mg po MoTh and Warfarin 5 mg [id number]
[2019-06-10 16:21] VITALS: BP 113/96; PULSE 94; TEMP 97.6
--- NOTE | 2019-06-10 19:15 | NUR ---
Shift assessment complete. Pt resting in bed, awake, a&o, cooperative c cares. Pt denies SOB, pain or any other c/o at this time. INT patent. Tele in place. Pt denies needs. Call light in reach, will monitor.
--- NOTE | 2019-06-10 19:20 | NUR ---
Uneventful afternoon for pt. Pt independent in room. Denies pain or SOB. Currently on 1L NC. No other needs. Report given to VIKAS Ponce.
[2019-06-10 19:39] VITALS: BP 120/75; PULSE 66; TEMP 97.7
[2019-06-11] VITALS (10 sets, daily range): BP systolic 101–141; BP diastolic 74–103; PULSE 57–118; TEMP 97–98.4
[2019-06-11 06:10] LABS: INR 2.2 (0.8-3.0); PROTHROMBIN TIME 26.6 SECONDS (9.7-12.8)
[2019-06-11 06:21] LABS: CALCIUM 8.3 mg/dL (8.4-10.2); CHOLESTEROL RISK RATIO 4.1; CREATININE, serum 1.1 (0.66-1.25); POTASSIUM 4.4 mmol/L (3.4-5.0)
[2019-06-11 06:28] LABS: TROPONIN-I 0.02 ng/mL (0.000-0.035)
[2019-06-11 06:32] LABS: BASO % 0.5 % (0.0-2.0); EOS # 0.1 (0.0-0.7); EOS % 1.8 % (0-4.0); GRAN # 5.2 (1.4-6.5); GRAN % 70.4 % (42.2-75.2); HEMOGLOBIN 11.6 g/dl (13.5-18.0); LYMPH # 1.4 (1.2-3.4); LYMPH % 19.2 % (20.0-51.0); MEAN CELL VOLUME 79 fl (80.0-100.0); MEAN CORPUSCULAR HEMOGLOBIN 25 pg (27.0-31.0); MEAN CORPUSCULAR HGB CONC 32 g/dl (33.0-37.0); MEAN PLATELET VOLUME 10.3 fl (7.4-10.4); MONO # 0.6 (0.1-0.6); MONO % 7.4 % (1.7-9.3); PLATELET COUNT 201 K/mm3 (130-400); RED BLOOD COUNT 4.61 M/mm3 (4.20-5.60); REDCELL DISTRIBUTION WIDTH-CV 17.2 % (11.5-14.5)
[2019-06-11 06:48] LABS: HEMATOCRIT 36.2 % (42.0-52.0)
--- NOTE | 2019-06-11 08:52 | NUR ---
Assessment completed, alert/oriented, vital signs stable, denies any chest pain or discomfort this morning, heart irregular/ A.fib HR 105 on tele this morning, distal pulses are palpable, lungs CTA/ no resp.difficulty noted, he has been NPO and will have lexiscan stress test this morning, denies needs at this time
[2019-06-11] MEDS ORDERED: LIPITOR 40MG TA40 MG PO (15:58)
[2019-06-11] MEDS ORDERED: PRINIVIL20 MG PO (15:58)
[2019-06-11] MEDS ORDERED: ASPIRIN E.C. 8181 MG PO (15:59)
[2019-06-11] MEDS ORDERED: CARDIZEM CD 12120 MG PO (16:43)
--- NOTE | 2019-06-11 16:58 | NUR ---
STEPHANE met with the patient to discuss discharge plan and to complete the Re-admission Patient Interview. The patient discharged back home with his sister on 05/26. He came back in with chest pain. The patient lives in [place] with his sister, Caity. He reports independence with ADLs and has a cane. He states that he needs a new cane. STEPHANE discussed where he could obtain one and how [facility] has donated equipment. STEPHANE provided him with their contact info. The patient does not have a PCP and is self pay. Financial Counselor, Jay, was consulted and provided a financial assistance application to the patient. STEPHANE discussed primary care options, [facility], and [facility]. The patient reports that he does not like the community clinics and wanted to get set up with a new PCP. The patient was agreeable to being set up at the [facility]. The patient was set up with Dr. Beltran George. Appointment on 06/12 at 1300. The patient receives his medications at the [facility] and he reports difficulties affording his meds. STEPHANE discussed the [employer] jay. The patient plans to have his sister download the application. The patient's advanced directives are in EMR. His sister, Caity, is his DPOA-HC. The patient plans to return back home with his sister upon discharge. The patient was prescribed four new medications. He states that he is unable to afford those meds and that his sister would not be able to help him out. STEPHANE provided the patient with a med voucher for his Lipitor, Lisinopril, Aspirin EC, and Cardizem CD to [facility]. Total $35.53. STEPHANE faxed the scripts and med voucher to Anastacia at [facility]. The patient had no other questions or concerns. No additional needs at this time.
--- NOTE | 2019-06-11 17:12 | NUR ---
Discharge instructions reviewed with the patient, instructed to follow up with PCP and Cardiology as scheduled, instructed to take medications as prescribed, scripts provided and Medic[employer] Voucher provided / faxed to [email or web address], left arm IV site removed, he is leaving with friend/ signficant other, I will personayll escort him out
== END 2019-06-11 17:15 | disposition home or self-care (01) ==
LOC: COL.ER 06:04 → MEDICAL 07:14
PROVIDERS: Emergency Medicine; Physician Assistant; ADMIT Family Medicine
DX: I11.0 Hypertensive heart disease with heart failure (principal); I48.0 Paroxysmal atrial fibrillation; I50.40 Unspecified combined systolic (congestive) and diastolic (congestive) heart failure; J44.9 Chronic obstructive pulmonary disease, unspecified; D64.9 Anemia, unspecified; N17.9 Acute kidney failure, unspecified; F17.210 Nicotine dependence, cigarettes, uncomplicated; Z79.01 Long term (current) use of anticoagulants; Z79.82 Long term (current) use of aspirin; Z80.3 Family history of malignant neoplasm of breast; Z82.49 Family history of ischemic heart disease and other diseases of the circulatory system
CPT/HCPCS: A9500; G0378; J2785

== ENCOUNTER 2019-07-09 11:11 | Inpatient (IN) | payer OTHER ==
[2019-07-09] VITALS (68 sets, daily range): BP systolic 97–135; BP diastolic 84–117; PULSE 78–112; TEMP 97.8–98.7; O2SAT 90–100
[~2019-07-09] VITALS: Ht 182.9 cm; Wt 89.1 kg
[~2019-07-09 11:11] MED LIST changes: +ASPIRIN E.C. 8181 MG PO; +CARDIZEM CD 12120 MG PO; +LIPITOR 40MG TA40 MG PO; +PRINIVIL20 MG PO
[2019-07-09 12:03] LABS: ALBUMIN 3.9 gm/dL (3.5-5.0); BILIRUBIN,TOTAL 1.7 mg/dL (0.0-1.0); CALCIUM 8.9 mg/dL (8.4-10.2); CREATININE, serum 1.04 (0.66-1.25); POTASSIUM 4.5 mmol/L (3.4-5.0); TOTAL PROTEIN 6.7 gm/dL (6.4-8.2)
[2019-07-09 12:15] LABS: TROPONIN-I 0.015 ng/mL (0.000-0.035)
[2019-07-09 12:26] LABS: ARTERIAL BLD GAS O2 SATURATION 96.1 % (92-100); ARTERIAL BLD GAS TCO2 CT 17.7; ARTERIAL BLOOD GAS BASE EXCESS -4.8 (-2-2); ARTERIAL BLOOD GAS PO2 89.3 mmHg (80-100); ARTERIAL BLOOD GAS pH 7.48 (7.35-7.45)
[2019-07-09 12:27] LABS: ARTERIAL BLOOD GAS PCO2 23.5 mmHg (35-45)
[2019-07-09 12:29] LABS: INR 1.9 (0.8-3.0)
[2019-07-09] MEDS ORDERED: CARTIA XT120 MG PO (12:47)
--- NOTE | 2019-07-09 13:03 | NUR ---
Report from VIKAS Dubose in ED at this time.
--- NOTE | 2019-07-09 13:10 | NUR ---
Patient transferred to ICU6 via ED stretcher by VIKAS Dubose with no complications. Patient able to transfer from stretcher to ICU bed independently. Full assessment completed. Patient connected to bedside monitor. Call light placed within reach. Bed in lowest position. Side rails up x2.
--- NOTE | 2019-07-09 14:00 | NUR ---
Starting to wean cardizem gtt at this time per Dr. Chino's recommendations.
[2019-07-09 15:20] LABS: HEMOGLOBIN 12.4 g/dl (13.5-18.0); MEAN CORPUSCULAR HEMOGLOBIN 24 pg (27.0-31.0); RED BLOOD COUNT 5.21 M/mm3 (4.20-5.60)
[2019-07-09 15:21] LABS: MEAN CELL VOLUME 77 fl (80.0-100.0); MEAN CORPUSCULAR HGB CONC 31 g/dl (33.0-37.0); PLATELET COUNT 224 K/mm3 (130-400); REDCELL DISTRIBUTION WIDTH-CV 17.9 % (11.5-14.5)
[2019-07-09 15:26] LABS: ANISOCYTOSIS 1+; BASOPHIL 1 % (0-2); EOSINOPHIL 3 % (0-4); LYMPHOCYTE 13 % (20.0-51.0); NEUTROPHILS 75 % (42.0-75.2); OVALOCYTES 1+; PLATELET ESTIMATE NORMAL (NORMAL)
--- NOTE | 2019-07-09 15:56 | NUR ---
JESSEE Santiago at [facility] called to figure out patient's coumadin dosages. Pamela states that the patient is prescribed Coumadin 7.5mg on Monday and and then Coumadin 5mg Monday, Monday, Monday, Monday, Monday. These findings also discussed with phamacist.
[2019-07-09] MEDS ORDERED: COUMADIN 5MG5 MG/TAB PO (15:59)
--- NOTE | 2019-07-09 19:17 | NUR ---
Bedside shift report given to VIKAS Martinez. Patient sleeping, vital signs stable. Call light within reach.
--- NOTE | 2019-07-09 21:00 | NUR ---
Patient sleepy, but awakens easily. Food tray offered and patient consumed 100% of meal. No complaints or concerns at this time.
[2019-07-10] VITALS (521 sets, daily range): BP systolic 79–132; BP diastolic 54–73; PULSE 76–97; TEMP 97.7–97.9; O2SAT 80–100
--- NOTE | 2019-07-10 00:15 | NUR ---
Patient resting in bed; denies any complaints at this time. VS stable.
--- NOTE | 2019-07-10 04:00 | NUR ---
Resting in bed with eyes shut; no concerns at this time.
[2019-07-10 05:37] LABS: INR 1.8 (0.8-3.0); PROTHROMBIN TIME 21.1 SECONDS (9.7-12.8)
[2019-07-10 05:38] LABS: CALCIUM 8.6 mg/dL (8.4-10.2); CREATININE, serum 1.23 (0.66-1.25); POTASSIUM 3.8 mmol/L (3.4-5.0)
[2019-07-10 05:49] LABS: TROPONIN-I 0.014 ng/mL (0.000-0.035)
[2019-07-10 07:17] LABS: HEMATOCRIT 39.1 % (42.0-52.0); HEMOGLOBIN 12.7 g/dl (13.5-18.0); MEAN CELL VOLUME 75 fl (80.0-100.0); MEAN CORPUSCULAR HEMOGLOBIN 24 pg (27.0-31.0); RED BLOOD COUNT 5.24 M/mm3 (4.20-5.60)
[2019-07-10 07:18] LABS: BASO % 0.4 % (0.0-2.0); EOS # 0.1 (0.0-0.7); EOS % 1.7 % (0-4.0); GRAN % 75.9 % (42.2-75.2); LYMPH % 12.7 % (20.0-51.0); MEAN CORPUSCULAR HGB CONC 33 g/dl (33.0-37.0); MEAN PLATELET VOLUME 10.9 fl (7.4-10.4); MONO # 0.7 (0.1-0.6); PLATELET COUNT 187 K/mm3 (130-400); REDCELL DISTRIBUTION WIDTH-CV 17.3 % (11.5-14.5)
--- NOTE | 2019-07-10 07:54 | NUR ---
Report given to VIKAS Ma. Patient care transfered.
--- NOTE | 2019-07-10 09:00 | NUR ---
PT A&O X3. PT SLEEPING BETWEEN DISTUBANCES. PT DENIES PAIN. PT'S CHEST CLEASED TO REMOVED LEFTOVER NITRO PASTE FROM OVERNIGHT. PT PROVIDED WARM BEDBATH WIPES FOR HYGIENE.
--- NOTE | 2019-07-10 09:39 | NUR ---
Initial visit; Patient thanked Works Manager for looking in on him and offering God's blessings.
--- NOTE | 2019-07-10 09:59 | NUR ---
LISANDRO ponce met with the patient to discuss a discharge plan. The patient lives in [place] with his sister. The patient does not have DME and reports independence with ADLs. The patient has a PCP but could not recall the name. He did say physician was [place]. The patient receives medications from [facility]. The patient has exhausted his medication voucher limit at [facility]. The patient has advanced directives in the EMR. The patient plans to return home upon discharge with his sister providing transportation. The patient is self-pay. LISANDRO ponce contacted Marylu, Financial Counselor. Marylu reports that the patient has been non-compliant with the disablity and medicaid application processes. Marylu reports patient does not return phone calls or respond to mailed request for information. LISANDRO ponce confirmed the patient's address is correct and the phone number in the EMR is his sisters. The patient now has a phone . corporate services manager will continue to follow to ensure a safe discharge.
--- NOTE | 2019-07-10 15:00 | NUR ---
PT STATES HE KEEPS FORGETTIN
--- NOTE | 2019-07-10 19:30 | NUR ---
Bedside report received from VIKAS Ma.
--- NOTE | 2019-07-10 20:00 | NUR ---
Patient sleeps between disturbances. Assessment complete. Patient laying in bed, he is alert and oriented x4. Lungs are clear in all rodriguez with diminished bases bilaterally. HR is irregular as patient is in afib/flutter, he is rate controlled in the 70-80's. Bowel sounds are active x4. Patient has no complaints of pain. He does request a snack, provided. Patient wishes to give himself a bath and get new linens, but wants to wait a while before doing so. Will check in with patient later. Will continue to monitor. Call light within reach.
[2019-07-11] VITALS (788 sets, daily range): BP systolic 80–120; BP diastolic 48–87; PULSE 70–105; TEMP 97.6–98.2; O2SAT 62–100
--- NOTE | 2019-07-11 | NUR ---
Patient continues to sleep and states he wants to wait on his bath for now. Vitals obtained and remain stable. Patient's BP has been slowly increasing over the shift. Patient has no complaints of pain. Will continue to monitor. Call light within reach.
--- NOTE | 2019-07-11 04:00 | NUR ---
Patient asleep, awakens to name. Vitals obtained and continue to have improved BP's. No complaints of pain. No further needs. Will continue to monitor. Call light within reach.
[2019-07-11 07:07] LABS: BASO # 0.1 (0.0-0.2); EOS # 0.1 (0.0-0.7); GRAN # 4.7 (1.4-6.5); GRAN % 67.9 % (42.2-75.2); HEMATOCRIT 46.5 % (42.0-52.0); LYMPH # 1.2 (1.2-3.4); LYMPH % 17.4 % (20.0-51.0); MEAN CELL VOLUME 76 fl (80.0-100.0); MEAN CORPUSCULAR HEMOGLOBIN 24 pg (27.0-31.0); MEAN CORPUSCULAR HGB CONC 32 g/dl (33.0-37.0); MONO # 0.8 (0.1-0.6); MONO % 11.1 % (1.7-9.3); PLATELET COUNT 197 K/mm3 (130-400); RED BLOOD COUNT 6.11 M/mm3 (4.20-5.60); REDCELL DISTRIBUTION WIDTH-CV 17.7 % (11.5-14.5)
[2019-07-11 07:08] LABS: HEMOGLOBIN 14.7 g/dl (13.5-18.0)
--- NOTE | 2019-07-11 07:15 | NUR ---
Bedside report given to VIKAS Ma
[2019-07-11 07:20] LABS: ALBUMIN 3.7 gm/dL (3.5-5.0); BILIRUBIN,TOTAL 1.6 mg/dL (0.0-1.0); CALCIUM 8.9 mg/dL (8.4-10.2); CREATININE, serum 1.42 (0.66-1.25); POTASSIUM 4.1 mmol/L (3.4-5.0); TOTAL PROTEIN 6.6 gm/dL (6.4-8.2)
--- NOTE | 2019-07-11 19:20 | NUR ---
Bedside report received from VIKAS Ma
--- NOTE | 2019-07-11 20:00 | NUR ---
Patient awake watching TV. He is alert and oriented x4. Assessment complete. Lungs are clear in all rodriguez with diminished bases. Patient has a dry cough. HR is irregular, continues to be in afib. Bowel sounds active x4. Patient has minor complaints of tooth pain, but denies want for medication at this time. Requests a snack, provided. No further needs at this time. Will continue to monitor. Call light within reach.
[2019-07-12] VITALS (196 sets, daily range): BP systolic 92–138; BP diastolic 63–113; PULSE 78–92; TEMP 97.6–98; O2SAT 67–100
--- NOTE | 2019-07-12 | NUR ---
Patient awake and watching TV. Vitals obtained and remain stable. Patient continues to have complaints of mild tooth pain, but does not want medication. No further needs. Will continue to monitor. Call light within reach.
--- NOTE | 2019-07-12 03:11 | NUR ---
Patient states that his tooth pain is worse and it is keeping him awake. He agrees to try some tylenol. Will be provided.
--- NOTE | 2019-07-12 04:00 | NUR ---
Patient asleep. Awakens easily. States tooth pain is much improved. Vitals obtained and remain stable. No further needs. Will continue to monitor. Call light within reach.
[2019-07-12 07:16] LABS: BASO # 0.1 (0.0-0.2); BASO % 1.1 % (0.0-2.0); EOS # 0.2 (0.0-0.7); EOS % 3.3 % (0-4.0); GRAN # 4.2 (1.4-6.5); GRAN % 57.6 % (42.2-75.2); HEMATOCRIT 45.2 % (42.0-52.0); HEMOGLOBIN 14.5 g/dl (13.5-18.0); LYMPH # 1.7 (1.2-3.4); LYMPH % 22.9 % (20.0-51.0); MEAN CELL VOLUME 76 fl (80.0-100.0); MEAN CORPUSCULAR HEMOGLOBIN 24 pg (27.0-31.0); MEAN CORPUSCULAR HGB CONC 32 g/dl (33.0-37.0); MEAN PLATELET VOLUME 10.1 fl (7.4-10.4); MONO # 1.1 (0.1-0.6); MONO % 14.5 % (1.7-9.3); PLATELET COUNT 226 K/mm3 (130-400); RED BLOOD COUNT 5.97 M/mm3 (4.20-5.60); REDCELL DISTRIBUTION WIDTH-CV 17.5 % (11.5-14.5)
--- NOTE | 2019-07-12 07:20 | NUR ---
Bedside report given to VIKAS Ma
[2019-07-12 07:21] LABS: INR 2.5 (0.8-3.0); PROTHROMBIN TIME 30.6 SECONDS (9.7-12.8)
[2019-07-12 07:33] LABS: CALCIUM 8.8 mg/dL (8.4-10.2); CREATININE, serum 1.14 (0.66-1.25); POTASSIUM 4.4 mmol/L (3.4-5.0)
--- NOTE | 2019-07-12 09:00 | NUR ---
PT A&O X4. PT STATES HE DID NOT SLEEP LAST NIGHT.
--- NOTE | 2019-07-12 11:03 | NUR ---
Patient will discharge later today. SW followed with patient to discuss discharge. Patient reports his sister or friend will provide transportation home. SW also reported that if patient is prescribed any new medications, SW can provide [employer] coupons. Patient was also provided a [employer] card for future medications needs. Patient did apply for medicaid with the financial counselor, yesterday. Patient does not have any concerns returning home. No additional needs at this time.
[2019-07-12] MEDS ORDERED: COREG 25MG25 MG/TAB PO (12:50)
[2019-07-12] MEDS ORDERED: LASIX 20MG TABL20 MG PO (13:01)
--- NOTE | 2019-07-12 14:52 | NUR ---
1452: DISCHARGE INSTRUCTIONS PROVIDED, DISCUSSED, AND ALL QUESTIONS ANSWERED. PT HAS BELONGINGS. PT'S FRIEND IS DRIVING PT HOME. 1457:PT AMBULATED OUT OF ICU DEPARTMENT AND ESCORTED TO DOOR BY VIKAS SORTO.
== END 2019-07-12 14:57 | disposition home or self-care (01) | DRG 293 ==
LOC: COL.ER 11:11 → ICU 12:36
PROVIDERS: Emergency Medicine; Nurse Practitioner Family; Physician Assistant; ADMIT Student in an Organized Health Care Education/Training Program
DX: I11.0 Hypertensive heart disease with heart failure (principal); I50.23 Acute on chronic systolic (congestive) heart failure; I48.91 Unspecified atrial fibrillation; J44.9 Chronic obstructive pulmonary disease, unspecified; I42.9 Cardiomyopathy, unspecified; E78.5 Hyperlipidemia, unspecified; I95.9 Hypotension, unspecified; F17.210 Nicotine dependence, cigarettes, uncomplicated; Z79.01 Long term (current) use of anticoagulants; Z79.82 Long term (current) use of aspirin
CPT/HCPCS: 99223-AI; J1160; J1940; J7040; J7050

== ENCOUNTER → 2019-07-29 | Outpatient (CLI) | payer OTHER ==
[~2019-07-29] MED LIST changes: +CARTIA XT120 MG PO
== END ==
LOC: COL.PUL 08:53
DX: Z02.71 Encounter for disability determination (principal)

== ENCOUNTER 2019-12-20 11:29 | Emergency (ER) | payer MEDICAID ==
[~2019-12-20] VITALS: Ht 185.4 cm; Wt 91.1 kg
[~2019-12-20 11:29] MED LIST changes: +HYDROCORTISONE30 G3 TP; +IPRATROPIUM BROM3 M1 IH; +LIDO2%GEL PO; +LIDOCAINE HCL100 M1 MM; +MYLANTA 150 ML150 M1 PO; +NICODERM C21 MG/PATC TD; +PROTONIX 40MG T40 MG PO; +TENORMIN100 MG PO; +TYLENOL 500MG500 MG PO; +ZOFRAN ODT4 MG PO
[2019-12-20] MEDS ORDERED: AMOXICILLIN875 MG PO (11:48)
[2019-12-20 12:14] VITALS: BP 140/85; PULSE 65; TEMP 97.8
== END 2019-12-20 12:08 | disposition home or self-care (01) ==
LOC: COL.ER 11:29
DX: K02.9 Dental caries, unspecified (principal); Z79.01 Long term (current) use of anticoagulants

== ENCOUNTER 2019-12-31 10:26 | Emergency (ER) | payer MEDICAID ==
[~2019-12-31] VITALS: Ht 182.9 cm; Wt 90.9 kg
[~2019-12-31 10:26] MED LIST changes: +AMOXICILLIN875 MG PO
[2019-12-31 10:27] VITALS: TEMP 97.5
[2019-12-31 10:44] LABS: BASO # 0.1 (0.0-0.2); BASO % 0.9 % (0.0-2.0); EOS # 0.1 (0.0-0.7); GRAN # 4.5 (1.4-6.5); GRAN % 63.6 % (42.2-75.2); HEMATOCRIT 39.8 % (42.0-52.0); HEMOGLOBIN 12.9 g/dl (13.5-18.0); LYMPH # 1.5 (1.2-3.4); LYMPH % 21.5 % (20.0-51.0); MEAN CELL VOLUME 80 fl (80.0-100.0); MEAN CORPUSCULAR HEMOGLOBIN 26 pg (27.0-31.0); MEAN CORPUSCULAR HGB CONC 32 g/dl (33.0-37.0); MEAN PLATELET VOLUME 10.1 fl (7.4-10.4); MONO # 0.8 (0.1-0.6); MONO % 11.7 % (1.7-9.3); PLATELET COUNT 218 K/mm3 (130-400); RED BLOOD COUNT 4.98 M/mm3 (4.20-5.60); REDCELL DISTRIBUTION WIDTH-CV 19.4 % (11.5-14.5)
[2019-12-31 10:55] LABS: ALANINE AMINOTRANSFERASE 22 U/L (21-72); ALBUMIN 3.9 gm/dL (3.5-5.0); ALKALINE PHOSPHATASE 82 U/L (50-136); ANION GAP 11 mmol/L (7-16); AST,SGOT 43 U/L (15-37); BILIRUBIN,TOTAL 1.3 mg/dL (0.0-1.0); BLOOD UREA NITROGEN 31 mg/dL (9-20); CALCIUM 8.6 mg/dL (8.4-10.2); CARBON DIOXIDE 18 mmol/L (22-30); CHLORIDE 108 mmol/L (98-107); GLUCOSE 87 mg/dL (74-106); LIPASE 95 U/L (23-300); MAGNESIUM 2.2 mg/dL (1.6-2.3); POTASSIUM 4.4 mmol/L (3.4-5.0); SODIUM 137 mmol/L (137-145); TOTAL PROTEIN 6.7 gm/dL (6.4-8.2)
[2019-12-31 10:58] LABS: INR 1.2 (0.8-3.0); PROTHROMBIN TIME 13.6 SECONDS (9.7-12.8)
[2019-12-31 11:01] LABS: PARTIAL THROMBOPLASTIN TIME 28.7 SECONDS (26.0-37.0)
[2019-12-31 11:07] LABS: TROPONIN-I < 0.012 ng/mL (0.000-0.035)
[2019-12-31 11:49] LABS: COLLECTION METHOD CLEAN CATCH
[2019-12-31 12:01] LABS: MUCOUS Present /lpf; PH 5 (5-8); SQUAMOUS EPITHELIAL None Seen /hpf; URINE APPEARANCE Clear; URINE BACTERIA None Seen /hpf; URINE BILIRUBIN Negative (NEGATIVE); URINE BLOOD Negative (NEGATIVE); URINE COLOR Yellow; URINE GLUCOSE Negative (NEGATIVE); URINE KETONE Trace (NEGATIVE); URINE LEUKOCYTE ESTERASE Negative (NEGATIVE); URINE NITRATE Negative (NEGATIVE); URINE PROTEIN(semi-quant) 1+ (NEGATIVE); URINE RBC 0-2 /hpf
[2019-12-31 14:47] VITALS: BP 120/97; PULSE 89
[2019-12-31 22:44] LABS: TRICYCLIC ANTIDEPRESS URINE NEGATIVE
== END 2019-12-31 15:11 | disposition short-term general hospital (02) ==
LOC: COL.ER 10:26
PROVIDERS: Emergency Medicine
DX: I48.20 Chronic atrial fibrillation, unspecified (principal); N18.9 Chronic kidney disease, unspecified; J44.9 Chronic obstructive pulmonary disease, unspecified; I50.9 Heart failure, unspecified; I42.8 Other cardiomyopathies; F10.20 Alcohol dependence, uncomplicated; F17.210 Nicotine dependence, cigarettes, uncomplicated; Z79.01 Long term (current) use of anticoagulants
CPT/HCPCS: J0282; J3010; J7060

== ENCOUNTER 2020-04-23 01:54 | Inpatient (IN) | payer MEDICAID ==
[~2020-04-23] VITALS: Ht 177.8 cm; Wt 90.9 kg
[2020-04-23] VITALS (7 sets, daily range): BP systolic 103–117; BP diastolic 80–98; PULSE 88–94; TEMP 97.5–98; O2SAT 98
[2020-04-23 02:12] LABS: BASO # 0.1 (0.0-0.2); BASO % 0.8 % (0.0-2.0); EOS # 0.1 (0.0-0.7); EOS % 1.2 % (0-4.0); GRAN # 4.5 (1.4-6.5); GRAN % 68.4 % (42.2-75.2); HEMATOCRIT 37.5 % (42.0-52.0); HEMOGLOBIN 11.7 g/dl (13.5-18.0); LYMPH # 1.4 (1.2-3.4); LYMPH % 21.3 % (20.0-51.0); MEAN CELL VOLUME 81 fl (80.0-100.0); MEAN CORPUSCULAR HEMOGLOBIN 25 pg (27.0-31.0); MEAN CORPUSCULAR HGB CONC 31 g/dl (33.0-37.0); MEAN PLATELET VOLUME 10.7 fl (7.4-10.4); MONO # 0.5 (0.1-0.6); MONO % 7.8 % (1.7-9.3); PLATELET COUNT 164 K/mm3 (130-400); RED BLOOD COUNT 4.66 M/mm3 (4.20-5.60); REDCELL DISTRIBUTION WIDTH-CV 16.1 % (11.5-14.5)
[2020-04-23 02:17] LABS: INR 1.4 (0.8-3.0); PROTHROMBIN TIME 16.1 SECONDS (9.7-12.8)
[2020-04-23 02:21] LABS: ALBUMIN 3.6 gm/dL (3.5-5.0); BILIRUBIN,TOTAL 1.4 mg/dL (0.0-1.0); CALCIUM 8.5 mg/dL (8.4-10.2); CREATININE, serum 1.18 (0.66-1.25); POTASSIUM 4.1 mmol/L (3.4-5.0); TOTAL PROTEIN 6.4 gm/dL (6.4-8.2)
[2020-04-23 02:33] LABS: TROPONIN-I 0.026 ng/mL (0.000-0.035)
[2020-04-23 03:06] LABS: COLLECTION METHOD CLEAN CATCH
[2020-04-23 03:13] LABS: MUCOUS Present /lpf; PH 5 (5-8); SQUAMOUS EPITHELIAL None Seen /hpf; URINE APPEARANCE Clear; URINE BACTERIA None Seen /hpf; URINE BILIRUBIN Negative (NEGATIVE); URINE BLOOD Negative (NEGATIVE); URINE COLOR Yellow; URINE GLUCOSE Negative (NEGATIVE); URINE KETONE Negative (NEGATIVE); URINE LEUKOCYTE ESTERASE Negative (NEGATIVE); URINE NITRATE Negative (NEGATIVE); URINE PROTEIN(semi-quant) 1+ (NEGATIVE); URINE RBC None Seen /hpf
--- NOTE | 2020-04-23 03:50 | NUR ---
Received report from VIKAS Thompson.
--- NOTE | 2020-04-23 04:07 | NUR ---
Patient arrives to ICU room 2 via ED stretcher. Patient able to ambulate with one-person assist to ICU bed. Reports 7/10 chronic bilateral hip pain; denies presence of chest pain or discomfort. Initial vitals within normal limits. Patient remains in afib with HR 70-100s. NS hanging on gravity tubing to a peripheral IV in the left wrist. Patient is partially oriented with some mild confusion. He is aware of his location and the current [place] president, although is confused regarding the date. When nurse attempts to confirm allergies, patient states he recently became aware of a new allergy but is unable to recall what it is and that his sister, Caity, would know. Additionally, when attempting to complete patient's history, patient easily doses off during and in between questions. Patient's belongings include his street clothes, 2 sets of keys, a pack of cigarettes, and his home pill box. The pill box is full, however the patient is unaware of which pills are included in the pill box and their dosages. The sister, Caity contacted at 0430. She denies knowing of any new allergies. Nurse requested copies of any current advanced directives and a complete medication list at her [facility]. Dr. Lopez notified of patient's arrival and current condition. No new orders received at this time. Will continue to monitor.
[2020-04-23 08:37] LABS: BASO # 0.1 (0.0-0.2); EOS # 0.1 (0.0-0.7); EOS % 2.5 % (0-4.0); GRAN # 3.1 (1.4-6.5); GRAN % 59.8 % (42.2-75.2); HEMOGLOBIN 11.2 g/dl (13.5-18.0); LYMPH # 1.4 (1.2-3.4); LYMPH % 26.5 % (20.0-51.0); MEAN CELL VOLUME 81 fl (80.0-100.0); MEAN CORPUSCULAR HEMOGLOBIN 25 pg (27.0-31.0); MEAN CORPUSCULAR HGB CONC 32 g/dl (33.0-37.0); MEAN PLATELET VOLUME 11.1 fl (7.4-10.4); MONO # 0.5 (0.1-0.6); MONO % 9.8 % (1.7-9.3); PLATELET COUNT 149 K/mm3 (130-400); RED BLOOD COUNT 4.41 M/mm3 (4.20-5.60); REDCELL DISTRIBUTION WIDTH-CV 16.1 % (11.5-14.5)
[2020-04-23 08:41] LABS: HEMATOCRIT 35.6 % (42.0-52.0)
[2020-04-23 08:43] LABS: CALCIUM 8.2 mg/dL (8.4-10.2); CREATININE, serum 1.09 (0.66-1.25); POTASSIUM 4.2 mmol/L (3.4-5.0)
[2020-04-23 08:54] LABS: TROPONIN-I 6 HR POST INITIAL 0.027 ng/mL (0.000-0.034)
--- NOTE | 2020-04-23 09:36 | NUR ---
STEPHANE met with the patient to discuss discharge plan. The patient lives in [place] with his sister, Caity (ph#[phone]). He reports needing occasional assistance with ADLs and does not have any DME. He states that his now ex-girlfriend would assist him, if he needed help. The patient does not have a PCP at this time. He states that he used to see Dr. Norberto George when he was at the [facility] and he has not established care with a new PCP since Dr. George moved to [place]. The patient reports that he would be interested in getting set up with Dr. George at the [facility], if he is taking new patients. STEPHANE contacted the [facility] and secured the patient an appointment with Dr. George on Sunday 05/06 at 0900. The clinic requests the patient's records and discharge orders to fax number [phone]. STEPHANE to inform the patient's RN of appointment. The patient's DPOA-HC is in EMR and it is his sister, Caity. The patient plans to return home with his sister upon discharge. STEPHANE will need to fax the patient's records and discharge orders to the [facility]. STEPHANE to continue to follow.
--- NOTE | 2020-04-23 11:17 | NUR ---
Patient assisted to wheelchair by processing technician. Taken to radiology department in stable condition.
[2020-04-23 12:44] LABS: TRICYCLIC ANTIDEPRESS URINE NEGATIVE
--- NOTE | 2020-04-23 15:42 | NUR ---
Report given to Logan at 1500, patient transferred to [facility] via wheelchair with belongings in hand at 1515.
--- NOTE | 2020-04-23 16:05 | NUR ---
PT TRANSFERED TO UNIT @ 1520 ACCOMPANIED BY NURSE. SLEEPY BUT ORIENTED. DENIES PAIN. BED ALARM ON.
[2020-04-23] MEDS ORDERED: LASIX 40MG TABL40 MG PO (19:42)
[2020-04-23] MEDS ORDERED: COREG12.5 MG PO (19:42)
[2020-04-23] MEDS ORDERED: LANOXIN 0.25M0.25 MG PO (19:43)
[2020-04-23] MEDS ORDERED: LIPITOR20 MG PO (19:46)
[2020-04-23] MEDS ORDERED: ZESTRIL 10MG10 MG PO (19:47)
[2020-04-23] MEDS ORDERED: COUMADIN 77.5 MG/TAB PO (19:48)
--- NOTE | 2020-04-23 22:00 | NUR ---
Pt assessment completed and documented. Pt resting in bed at this time. Pt drowsy at this time. Pt oriented to self, and place and is disoriented to time. INT to left wrist patent and free of complications. Pt denies any other needs at this time. Bed alarm on. Call light within reach. Will continue to monitor.
[2020-04-24 00:15] VITALS: BP 124/82; PULSE 95; TEMP 97.9
[2020-04-24 03:15] VITALS: BP 123/90; PULSE 102; TEMP 97.7
--- NOTE | 2020-04-24 05:20 | NUR ---
Pt had uneventful shift. Pt rested well throughout the night. Denied pain. INT to left wrist without complications. Pt denies any other needs at this time. Bed alarm on. Call light within reach. Will continue to monitor.
[2020-04-24 06:53] VITALS: BP 124/104; PULSE 104; TEMP 97.7
--- NOTE | 2020-04-24 06:57 | NUR ---
Telemetry called stating patient in Afib RVR. 120s to 150s. VS taken. Diastolic high. Asymptomatic, sleeping. Attemped to contact Dr. Brown for orders. No answer at this time. Left voicemail to contact regarding patient in 356. Updated telemetry call placed to Dr. Brown-current rate low 100s per telemetry.
[2020-04-24 06:59] LABS: BASO % 0.6 % (0.0-2.0); EOS # 0.1 (0.0-0.7); EOS % 1.8 % (0-4.0); GRAN # 4.5 (1.4-6.5); GRAN % 67.7 % (42.2-75.2); HEMATOCRIT 37.9 % (42.0-52.0); LYMPH # 1.4 (1.2-3.4); LYMPH % 21.5 % (20.0-51.0); MEAN CELL VOLUME 80 fl (80.0-100.0); MEAN CORPUSCULAR HEMOGLOBIN 25 pg (27.0-31.0); MEAN CORPUSCULAR HGB CONC 32 g/dl (33.0-37.0); MEAN PLATELET VOLUME 11.4 fl (7.4-10.4); MONO # 0.5 (0.1-0.6); MONO % 8.1 % (1.7-9.3); PLATELET COUNT 164 K/mm3 (130-400); RED BLOOD COUNT 4.73 M/mm3 (4.20-5.60); REDCELL DISTRIBUTION WIDTH-CV 15.9 % (11.5-14.5)
[2020-04-24 07:03] LABS: INR 1.7 (0.8-3.0); PROTHROMBIN TIME 18.6 SECONDS (9.7-12.8)
[2020-04-24 07:11] VITALS: BP 127/94
[2020-04-24 07:18] LABS: CALCIUM 8.5 mg/dL (8.4-10.2); CREATININE, serum 1.09 (0.66-1.25); POTASSIUM 4.3 mmol/L (3.4-5.0)
--- NOTE | 2020-04-24 07:23 | NUR ---
Report given to VIKAS Escobar
--- NOTE | 2020-04-24 09:56 | NUR ---
Assessment complete. Patient sitting up in bed currently eating breakfast. Denies pain at this time. He was alert and oriented, just did not know the year. His reason for being here is unclear to him. I reminded him that his heart rate was extremely irregular and we are trying to manage his meds to regulate it again given that he had stopped taking them at home, he stated he understood this. Distal pulses were palpable, legs are significantly more pale than his upper body but this appears to be due to a lack of sun exposure compared to his upper exrtemities. No other needs were expressed, patient states he will probably just sleep for the day.
[2020-04-24] MEDS ORDERED: LASIX 40MG TABL40 MG PO (11:49)
[2020-04-24] MEDS ORDERED: ALDACTONE 25MG25 M1 PO (11:49)
[2020-04-24] MEDS ORDERED: ZESTRIL 5MG5 MG PO (11:49)
[2020-04-24] MEDS ORDERED: COREG 3.123.125 MG/T PO (11:49)
[2020-04-24] MEDS ORDERED: COREG12.5 MG PO (11:52)
--- NOTE | 2020-04-24 12:05 | NUR ---
The patient is to discharge back home with his sister today, 04/24. STEPHANE faxed the patient's records and discharge orders to the [facility]. No additional needs at this time.
--- NOTE | 2020-04-24 12:12 | NUR ---
Pt reported itching and a rash on his left arm and neck. Per assessment I found no evidence of a rash. Notified KALLI Gil as patient stated he was not going to leave unless this was taken care of. Will administered ordered medication to help with itching at this time. Will continue to monitor.
[2020-04-24 12:28] VITALS: BP 120/87; PULSE 93; TEMP 98.7
--- NOTE | 2020-04-24 13:07 | NUR ---
pT LEFT THE FLOOR AT THIS TIME. IV REMOVED. SPOKE ABOUT DISCHARGE INSRUCTIONS. NO FURTHER QUESTIONS OR CONCERNS. STRESSED THE IMPORTANCE OF MEDICATION COMPLIANCE.
== END 2020-04-24 13:15 | disposition home or self-care (01) | DRG 309 ==
LOC: COL.ER 01:54 → ICU 03:24 → MEDICAL 16:04
PROVIDERS: Nurse Practitioner Primary Care; ADMIT Student in an Organized Health Care Education/Training Program
DX: I48.91 Unspecified atrial fibrillation (principal); I50.22 Chronic systolic (congestive) heart failure; I11.0 Hypertensive heart disease with heart failure; I25.10 Atherosclerotic heart disease of native coronary artery without angina pectoris; J44.9 Chronic obstructive pulmonary disease, unspecified; F17.210 Nicotine dependence, cigarettes, uncomplicated; K44.9 Diaphragmatic hernia without obstruction or gangrene; I42.8 Other cardiomyopathies; K21.9 Gastro-esophageal reflux disease without esophagitis; Z79.01 Long term (current) use of anticoagulants; Z91.14 Patient's other noncompliance with medication regimen
CPT/HCPCS: 99222-AI; 99239; J1160; J1650; J7030

== ENCOUNTER 2020-04-28 21:24 | Emergency (ER) | payer MEDICAID ==
[~2020-04-28] VITALS: Ht 182.9 cm; Wt 90.9 kg
[~2020-04-28 21:24] MED LIST changes: +COREG 3.123.125 MG/T PO; +LANOXIN 0.25M0.25 MG PO; +LIPITOR20 MG PO; +ZESTRIL 5MG5 MG PO
[2020-04-28 21:44] VITALS: BP 104/76; TEMP 97.9
[2020-04-28 23:00] VITALS: PULSE 77
== END 2020-04-28 23:00 | disposition home or self-care (01) ==
LOC: COL.ER 21:24
DX: L50.9 Urticaria, unspecified (principal); I10 Essential (primary) hypertension; I25.10 Atherosclerotic heart disease of native coronary artery without angina pectoris; E78.5 Hyperlipidemia, unspecified; I48.91 Unspecified atrial fibrillation; F17.210 Nicotine dependence, cigarettes, uncomplicated; Z79.01 Long term (current) use of anticoagulants
CPT/HCPCS: J1040

== ENCOUNTER 2020-07-08 06:05 | Emergency (ER) | payer MEDICAID ==
[2020-07-08 06:37] LABS: COLLECTION METHOD CATHETER
[2020-07-08 06:41] LABS: INR 1.4 (0.8-3.0); PROTHROMBIN TIME 15.6 SECONDS (9.7-12.8)
[2020-07-08 06:44] LABS: ALBUMIN 4.1 gm/dL (3.5-5.0); BILIRUBIN,TOTAL 1.3 mg/dL (0.0-1.0); CALCIUM 8.7 mg/dL (8.4-10.2); CREATININE, serum 1.43 (0.66-1.25); PARTIAL THROMBOPLASTIN TIME 31.8 SECONDS (26.0-37.0); POTASSIUM 3.5 mmol/L (3.4-5.0); TOTAL PROTEIN 6.8 gm/dL (6.4-8.2)
[2020-07-08 06:50] LABS: MUCOUS Present /lpf; PH 5 (5-8); SQUAMOUS EPITHELIAL 0-2 /hpf; URINE APPEARANCE Cloudy; URINE BACTERIA Occasional /hpf; URINE BILIRUBIN Negative (NEGATIVE); URINE BLOOD Negative (NEGATIVE); URINE COLOR Yellow; URINE GLUCOSE Negative (NEGATIVE); URINE KETONE Negative (NEGATIVE); URINE LEUKOCYTE ESTERASE Negative (NEGATIVE); URINE NITRATE Negative (NEGATIVE); URINE PROTEIN(semi-quant) 2+ (NEGATIVE); URINE RBC 20-50 /hpf; URINE UROBILINOGEN Negative (NEGATIVE)
[2020-07-08 06:55] LABS: C-REACTIVE PROTEIN 1.1 mg/dL (0.0-0.9); HEMATOCRIT 42.9 % (42.0-52.0); HEMOGLOBIN 13.1 g/dl (13.5-18.0); MAGNESIUM 2.4 mg/dL (1.6-2.3); MEAN CELL VOLUME 82 fl (80.0-100.0); MEAN CORPUSCULAR HEMOGLOBIN 25 pg (27.0-31.0); MEAN CORPUSCULAR HGB CONC 31 g/dl (33.0-37.0); PHOSPHOROUS 6.3 mg/dL (2.5-4.5); PLATELET COUNT 137 K/mm3 (130-400); RED BLOOD COUNT 5.24 M/mm3 (4.20-5.60); REDCELL DISTRIBUTION WIDTH-CV 20.4 % (11.5-14.5)
[2020-07-08 07:02] LABS: BAND 2 % (0-10); EOSINOPHIL 2 % (0-4); LYMPHOCYTE 39 % (20.0-51.0); NEUTROPHILS 52 % (42.0-75.2); OVALOCYTES 1+; PLATELET ESTIMATE NORMAL (NORMAL)
[2020-07-08 07:06] LABS: TROPONIN-I 0.044 ng/mL (0.000-0.035)
[2020-07-08 07:30] VITALS: BP 92/46; PULSE 104
== END 2020-07-08 07:45 | disposition short-term general hospital (02) ==
LOC: COL.ER 06:05
PROVIDERS: Emergency Medicine
DX: I46.9 Cardiac arrest, cause unspecified (principal); I21.3 ST elevation (STEMI) myocardial infarction of unspecified site; I11.0 Hypertensive heart disease with heart failure; I50.9 Heart failure, unspecified; J44.9 Chronic obstructive pulmonary disease, unspecified; Z79.01 Long term (current) use of anticoagulants
CPT/HCPCS: J0282; J1644; J3101; J7030; J7060

== ENCOUNTER → 2020-07-08 | Outpatient (REF) ==
[2020-07-08 08:41] LABS: HIV 1/2 Antibodies Non-Reactive; HIV-1p24 Antigen Non-Reactive
[2020-07-08 17:43] LABS: HEPATITIS B SURFACE ANTIBODY <2.0 (()); HEPATITIS B SURFACE ANTIGEN Negative (Negative); HEPATITIS C VIRUS ANTIBODY Negative (Negative)
== END ==
LOC: COL.ER 08:04
PROVIDERS: Emergency Medicine
DX: R69 Illness, unspecified (principal)

== ENCOUNTER 2020-07-29 15:58 | Emergency (ER) | payer MEDICAID | END 2020-07-29 16:07 | disposition left against medical advice (07) | LOC: COL.ER 15:58 | DX: R07.9 Chest pain, unspecified (principal); Z53.21 Procedure and treatment not carried out due to patient leaving prior to being seen by health care provider; Z79.01 Long term (current) use of anticoagulants ==

== ENCOUNTER 2023-03-07 06:28 | Day surgery (SDC) | payer MEDICAID ==
[~2023-03-07] VITALS: Ht 182.9 cm; Wt 92.5 kg
--- NOTE | 2023-03-07 06:56 | NUR ---
PT FORGOT TO BRING HIS MED LIST. STATES HE IS UNABLE TO REMEMBER WHAT HE TAKES, EVEN IF I READ MEDICATION NAMES ON HIS LIST IN COMPUTER. HE DOES KNOW THAT HE STOPPED HIS ELEQUIS ADVISED. LAST DOSE MONDAY /
[2023-03-07] MEDS ORDERED: ELIQUIS 5MG PO (07:18)
[2023-03-07] MEDS ORDERED: LIPITOR 40MG TA40 MG PO (07:19)
[2023-03-07] MEDS ORDERED: FARXIGA10 PO (07:19)
[2023-03-07] MEDS ORDERED: ENTRESTO 49 MG1 EACH PO (07:20)
[2023-03-07] MEDS ORDERED: PROTONIX 40MG T40 MG PO (07:20)
[2023-03-07] MEDS ORDERED: TOPROL XL 50MG50 MG PO (07:21)
[2023-03-07] MEDS ORDERED: REMERON45 MG PO (07:21)
[2023-03-07] MEDS ORDERED: ABILIFY2 MG (07:22)
[2023-03-07] MEDS ORDERED: CYMBALTA 60MG60 MG (07:22)
[2023-03-07] MEDS ORDERED: ENTRESTO 24 MG1 EACH PO (07:23)
[2023-03-07] MEDS ORDERED: MS CONTIN 330 MG/TAB PO (07:23)
[2023-03-07] MEDS ORDERED: MAGNESIUM PO (07:33)
[2023-03-07] MEDS ORDERED: NATURAL IRON65 MG PO (07:33)
[2023-03-07 08:18] VITALS: BP 89/73; PULSE 80; TEMP 97
--- NOTE | 2023-03-07 08:18 | NUR ---
PATIENT AMBULATED TO CHAIR WITH STEADY GAIT. PATIENT ALERT AND ORIENTED X3, DENIES PAIN AND NAUSEA. BREATHING REGULAR AND UNLABORED. SEE CHART FOR VITAL SIGNS. NURSE HANDOFF COMPLETED IN ROOM. PATIENT HAD APPLE JUICE AND A MUFFIN. BOTH FOOD AND DRINK TOLERATED WELL WITH NO DYSPHAGIA. CALL LIGHT IN REACH.
[2023-03-07 08:30] VITALS: BP 93/68; PULSE 84
[2023-03-07 08:45] VITALS: BP 94/69; PULSE 77
[2023-03-07 09:00] VITALS: BP 98/70; PULSE 86
[2023-03-07 09:15] VITALS: BP 90/69; PULSE 80
--- NOTE | 2023-03-07 09:15 | NUR ---
PATIENT DENIES PAIN AND NAUSEA, TOLERATING FOOD AND DRINK. SISTER, ROSALVA, PRESENT IN ROOM. PER ROSALVA, HAD ALREADY DISCUSSED THE PROCEDURE AND PLAN WITH HER. PER PROVIDER PATIENT OK TO RESUME ELIQUIS TOMORROW, COMMUNICATED THIS TO PATIENT. DISCHARGE TEACHING COMPLETED WITH PRINTED EDUCATION AND INSTRUCTIONS SENT HOME WITH PATIENT. PATIENT VERBALIZED UNDERSTANDING OF TEACHING. IV REMOVED. PATIENT DISCHARGED HOME WITH ROSALVA TRANSPORT.
[2023-03-07 10:32] VITALS: BP 100/68; PULSE 87; TEMP 97.1
== END 2023-03-07 09:30 | disposition home or self-care (01) ==
LOC: SDCO 06:28
DX: K21.00 Gastro-esophageal reflux disease with esophagitis, without bleeding (principal); K31.89 Other diseases of stomach and duodenum; K31.A19 Gastric intestinal metaplasia without dysplasia, unspecified site; K92.1 Melena; D12.4 Benign neoplasm of descending colon; D12.2 Benign neoplasm of ascending colon; I42.9 Cardiomyopathy, unspecified; E11.9 Type 2 diabetes mellitus without complications; Z79.84 Long term (current) use of oral hypoglycemic drugs; F17.210 Nicotine dependence, cigarettes, uncomplicated; Z95.810 Presence of automatic (implantable) cardiac defibrillator; Z79.01 Long term (current) use of anticoagulants
CPT/HCPCS: J2704; J3010; J7120